=== PATIENT | female | born 1960 | race African-American/Black ===

== ENCOUNTER 2021-06-01 05:36 | Outpatient (CLI) | payer SELFPAY ==
[2021-06-01 05:54] LABS: Bilirubin Negative (Negative); Blood, Urine Negative (Negative); Clarity Clear (Clear); Glucose, Urine (Dipstick) Negative (Negative); Ketone, Urine Negative (Negative); Leukocyte Trace (Negative); Nitrite Negative (Negative); Protein, Urine (Dipstick) Negative (Neg-Trace); Specific Gravity, Urine 1.025 (1.005-1.030); Urobilinogen 0.2 mg/dL (Less than 2)
== END 2021-06-01 05:37 | disposition home or self-care (01) ==
LOC: BURMANOR 05:36
PROVIDERS: ATTEND Family Medicine
DX: N17.9 Acute kidney failure, unspecified (principal)
CPT/HCPCS: 81003; 87086

== ENCOUNTER 2022-04-14 05:17 | Outpatient (CLI) | payer SELFPAY | END 2022-04-14 05:18 | disposition home or self-care (01) | LOC: BURMANOR 05:17 | PROVIDERS: ATTEND Family Medicine | DX: N39.0 Urinary tract infection, site not specified (principal) | CPT/HCPCS: 87077; 87086; 87186 ==

== ENCOUNTER 2022-05-06 07:46 | Emergency (ER) | payer SELFPAY ==
[2022-05-06 08:28] LABS: Hemoglobin 11.8 g/dL (12.0-16.0); Mean Corpuscular HGB CONC 32.6 g/dL (32.0-36.0); Mean Corpuscular Hemoglobin 30.8 pg (27.0-31.0); Mean Corpuscular Volume 94.6 fL (78.0-98.0); Mean Platelet Volume 4.7 fL (7.4-10.4); Platelet Count 315 thou/uL (130-400); Red Blood Cell (RBC) Count 3.84 mill/uL (4.20-5.40); White Blood Cell (WBC) Count 6.6 thou/uL (4.8-10.8)
[2022-05-06 08:37] LABS: ALT (SGPT) 29 U/L (8-55); AST (SGOT) 33 U/L (5-34); Albumin 4.2 g/dL (3.4-4.8); Alkaline Phosphatase 49 U/L (40-110); Anion Gap 14 mmol/L (10-20); BUN (Urea Nitrogen) 20 mg/dL (9.8-20.1); Bilirubin, Total 0.8 mg/dL (0.2-1.2); Calc. Creatinine Clearance 0 mL/min (70-130); Calcium 9.9 mg/dL (7.8-10.44); Carbon Dioxide 25 mmol/L (23-31); Chloride 106 mmol/L (98-107); Estimated GFR 70; Globulin 3.3 g/dL (2.4-3.5); Glucose 110 mg/dL (80-115); Potassium 4.5 mmol/L (3.5-5.1); Protein, Total 7.5 g/dL (5.8-8.1); Sodium 140 mmol/L (136-145)
[2022-05-06 08:53] LABS: Band 1 % (5-11); Lymphocytes 13 % (21-51); MDiff Complete? YES; Monocytes 8 % (0-10); Neutrophil 77 % (42-75); Platelet Morphology Comment Appears Adequate; RBC Morphology Normal
[2022-05-06 12:09] LABS: Bilirubin Negative (Negative); Blood, Urine Small (Negative); Clarity Slightly Cloudy (Clear); Glucose, Urine (Dipstick) Negative (Negative); Ketone, Urine 15 mg/dL (Negative); Leukocyte Small (Negative); Nitrite Negative (Negative); Protein, Urine (Dipstick) Negative (Neg-Trace); Specific Gravity, Urine 1.025 (1.005-1.030)
[2022-05-06 12:20] LABS: Bacteria/HPF 2+ HPF (None Seen); Mucous/LPF Few LPF (<2+)
[2022-05-06 12:25] LABS: Calcium Oxalate Crystals 4+ HPF (None Seen)
[2022-05-06] MEDS ORDERED: Sulfameth/Trimethoprim DS 800-160mg TAB ONE (13:02)
== END 2022-05-06 13:46 ==
LOC: BURERS 07:46
DX: N39.0 Urinary tract infection, site not specified (principal); E86.0 Dehydration; I25.10 Atherosclerotic heart disease of native coronary artery without angina pectoris; E78.5 Hyperlipidemia, unspecified; E78.00 Pure hypercholesterolemia, unspecified; I10 Essential (primary) hypertension; Z79.899 Other long term (current) drug therapy; Z79.82 Long term (current) use of aspirin
CPT/HCPCS: 36415; 51701; 80053; 81003; 81015; 83605; 85025; 87086; 96360